=== PATIENT | male | born 1980 | race African-American/Black ===

== ENCOUNTER 2018-08-12 13:12 | Emergency (ER) | payer SELFPAY ==
[2018-08-12] MEDS ORDERED: Ketorolac Tromethamine 60 MG/2 ML VIAL ONE (14:29)
--- NOTE | 2018-08-12 15:41 | RAD ---
LUMBAR SPINE THREE VIEWS: History: Pain. Comparison: None. FINDINGS: There are five non-rib bearing lumbar type vertebrae. No acute fracture or malalignment. No listhesis . Mild narrowing of the L5-S1 disc spaces. The paraspinal soft tissues are unremarkable. 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 No acute abnormality. POS: [facility]
--- NOTE | 2018-08-12 15:45 | RAD ---
RIGHT KNEE FOUR VIEWS: 08/12/18 HISTORY: Pain. COMPARISON: None. FINDINGS: There is mild medial compartment joint space narrowing. No acute fracture or malalignment. There is m oderate joint effusion. There are osteophytes of the patella. Small medial compartment osteophytes are present. IMPRESSION: Moderate joint effusion, greater than expected for the amount of degenerative change. MRI may be bene ficial in this patient if clinically warranted. POS: [facility]
== END 2018-08-12 15:58 | disposition home or self-care (01) ==
LOC: ERS 13:12
DX: M54.5 Low back pain (principal); M25.561 Pain in right knee
CPT/HCPCS: 72100; 96372; J1885